=== PATIENT | female | born 1950 | race African-American/Black ===

== ENCOUNTER 2023-03-10 23:48 | Inpatient (IN) | payer OTHER ==
[~2023-03-10] VITALS: Ht 175.3 cm; Wt 146.5 kg
[~2023-03-10 23:48] MED LIST: APIX5TAB PO; CALC-1139 PO; DIXL5 PO; FURO40TA5 PO; LISI40TA13 PO; LUBI24CA5 PO; METO25TA6 PO; MIRA25TA PO; NORT10CA PO; ONDA4TAB11 PO; PANT40TA51 PO; POTA-205 PO; PREG300C PO; PREMV VG; SYN150 PO; TOPI-255 PO; VENL75CA56 PO
[2023-03-10 23:49] VITALS: O2SAT 99
[2023-03-11] MEDS ORDERED: ASPIRIN 81MG TABLET PO ONE (00:15)
[2023-03-11] MEDS ORDERED: FUROSEMIDE 40MG/4ML VIAL IV ONE (00:15)
[2023-03-11 02:39] LABS: BASOPHILS % 0.8 % (0.0-2.0); EOSINOPHILS % 0.7 % (0.0-5.0); HEMATOCRIT. 27.7 % (36.0-48.0); HEMOGLOBIN. 8.6 g/dL (12.0-16.0); LYMPHOCYTES % 10.7 % (20.0-50.0); MEAN CORPUSCULAR HEMOGLOBIN 29.4 pg (28.0-32.0); MEAN CORPUSCULAR VOLUME 94.6 fL (81.0-99.0); MEAN PLATELET VOLUME 8.6 fl (7.4-10.4); MONOCYTES % 4.1 % (2.0-8.0); NEUTROPHILS % 83.7 % (40.0-76.0); PLATELET 311 x1000/uL (130-400); RED BLOOD CELL COUNT 2.93 mill/uL (4.2-5.4); RED CELL DISTRIBUTION WIDTH 16.4 % (11.6-14.6)
[2023-03-11 02:45] LABS: CHLORIDE 101 mEq/L (98-107)
[2023-03-11 02:54] LABS: INR 1.1; PARTIAL THROMBOPLASTIN TIME 32.4 sec (23.4-31.0); PROTHROMBIN TIME 11.4 sec (9.6-11.0)
[2023-03-11 04:31] LABS: CHLORIDE 102 mEq/L (98-107)
[2023-03-11] MEDS: METOPROLOL TARTRATE 25MG TABLET PO SCH ×2 (11:56→21:56)
[2023-03-11] MEDS ORDERED: ACETAMINOPHEN 325MG TABLET PO PRN (16:30)
[2023-03-11] MEDS ORDERED: IPRATROPIUM/ALBUTEROL 0.5-3(2.5)MG/3ML NEB HHN PRN (16:30)
[2023-03-11] MEDS ORDERED: NALOXONE HCL 0.4MG/ML VIAL IV PRN (16:45)
[2023-03-11 19:56] LABS: BG BASE EXCESS 16.8 mmol/L (-2.0-2.0); BG CARBOXYHEMOGLOBIN 0.2 % (0.5-1.5); BG DEOXYHEMOGLOBIN 3.2 % (0.0-5.0); BG FRACTION INSPIRED OXYGEN 36; BG HCO3 ACT 44.3 mmol/L (22.0-26.0); BG METHEMOGLOBIN 0.1 % (0.0-1.5); BG OXYGEN SATURATION 96.8 % (92.0-98.5); BG OXYHEMOGLOBIN 96.5 % (94.0-97.0); BG PCO2 74.8 mmHg (35.0-45.0); BG PO2 96.5 mmHg (75.0-100.0); BG SAMPLE SITE RIGHT RADIAL; BG TOTAL HEMOGLOBIN 9.2 g/dL (12.0-18.0); BG VENT MODE NASAL CANNULA
[2023-03-11 20:00] VITALS: BP 141/77; PULSE 50; RESP 22; TEMP 97.8
[2023-03-11] MEDS: HYDROCODONE/ACETAMINOPHEN 5/325MG TABLET PO PRN (21:56)
[2023-03-11] MEDS: PIPERACILLIN/TAZOBACTAM 3.375 G in DEXTROSE 5% WATER 50 ML IV SCH (22:25)
[2023-03-12] VITALS: BP 139/63; PULSE 51; RESP 20; TEMP 97.7
[2023-03-12 04:00] VITALS: BP 141/73; PULSE 49; RESP 20; TEMP 97.8
[2023-03-12] MEDS: PIPERACILLIN/TAZOBACTAM 3.375 G in DEXTROSE 5% WATER 50 ML IV SCH ×2 (05:04→12:59)
[2023-03-12] MEDS: HYDROCODONE/ACETAMINOPHEN 5/325MG TABLET PO PRN ×3 (05:43→23:05)
[2023-03-12 06:03] LABS: BASOPHILS % 0.5 % (0.0-2.0); EOSINOPHILS % 1.3 % (0.0-5.0); HEMATOCRIT. 28.3 % (36.0-48.0); HEMOGLOBIN. 8.7 g/dL (12.0-16.0); LYMPHOCYTES % 14.4 % (20.0-50.0); MEAN CORPUSCULAR HEMOGLOBIN 28.9 pg (28.0-32.0); MEAN CORPUSCULAR VOLUME 94.3 fL (81.0-99.0); MEAN PLATELET VOLUME 8.5 fl (7.4-10.4); MONOCYTES % 8.3 % (2.0-8.0); NEUTROPHILS % 75.5 % (40.0-76.0); PLATELET 316 x1000/uL (130-400); RED CELL DISTRIBUTION WIDTH 16.6 % (11.6-14.6)
[2023-03-12 06:13] LABS: CHLORIDE 99 mEq/L (98-107)
[2023-03-12 08:00] VITALS: BP 144/57; PULSE 52; RESP 18; TEMP 98
[2023-03-12] MEDS ORDERED: MORPHINE SULFATE 2 MG/ML CPJ (NOT FOR IM USE) IV NR (08:30)
[2023-03-12] MEDS: METOPROLOL TARTRATE 25MG TABLET PO SCH (08:53)
[2023-03-12] MEDS: PANTOPRAZOLE SODIUM 40 MG/VIAL IV SCH (08:53)
[2023-03-12 12:00] VITALS: BP 136/54; PULSE 48; RESP 18; TEMP 97.9
[2023-03-12] MEDS ORDERED: AMLODIPINE 5MG TABLET PO SCH (12:30)
[2023-03-12 16:00] VITALS: BP 117/51; PULSE 62; RESP 18; TEMP 98.4
[2023-03-12] MEDS: LEVOFLOXACIN 500MG PREMIX 100 ML IV SCH (16:11)
[2023-03-12] MEDS: ONDANSETRON HCL 4MG/2ML INJ IV PRN (16:11)
[2023-03-12] MEDS: DOCUSATE SODIUM 100MG CAPSULE PO PRN (16:30)
[2023-03-12 16:49] LABS: T4 FREE 0.84 ng/dL (0.76-1.46)
[2023-03-12 17:01] LABS: FERRITIN 320 ng/mL (10-291)
[2023-03-12 17:12] LABS: VITAMIN B12 SERUM 645 pg/mL (211-911)
[2023-03-12 20:00] VITALS: BP 109/54; PULSE 47; RESP 22; TEMP 97.3
[2023-03-12] MEDS: AMLODIPINE 5MG TABLET PO SCH (20:27)
[2023-03-12 22:31] LABS: CLARITY URINE TURBID (CLEAR); COLOR URINE DARK YELLOW (YELLOW); KETONES URINE TRACE (NEGATIVE); LEUKOCYTE ESTERASE URINE TRACE (NEGATIVE); NITRITE URINE NEGATIVE (NEGATIVE); OCCULT BLOOD URINE 3+ (NEGATIVE); PROTEIN URINE 1+ (NEGATIVE); SPECIFIC GRAVITY URINE 1.032 (1.005-1.030)
[2023-03-13] VITALS (10 sets, daily range): BP systolic 109–141; BP diastolic 54–70; PULSE 47–55; RESP 15–22; TEMP 97–98.5
[2023-03-13 05:01] LABS: BASOPHILS % 0.6 % (0.0-2.0); HEMATOCRIT. 26.5 % (36.0-48.0); HEMOGLOBIN. 8.2 g/dL (12.0-16.0); LYMPHOCYTES % 15.2 % (20.0-50.0); MEAN CORPUSCULAR HEMOGLOBIN 29.5 pg (28.0-32.0); MEAN CORPUSCULAR VOLUME 95.2 fL (81.0-99.0); MEAN PLATELET VOLUME 8.2 fl (7.4-10.4); MONOCYTES % 5.8 % (2.0-8.0); NEUTROPHILS % 76.4 % (40.0-76.0); PLATELET 309 x1000/uL (130-400); RED BLOOD CELL COUNT 2.79 mill/uL (4.2-5.4); RED CELL DISTRIBUTION WIDTH 16.5 % (11.6-14.6)
[2023-03-13 05:13] LABS: CHLORIDE 101 mEq/L (98-107)
[2023-03-13] MEDS: AMLODIPINE 5MG TABLET PO SCH ×2 (09:30→22:40)
[2023-03-13] MEDS: HYDROCODONE/ACETAMINOPHEN 5/325MG TABLET PO PRN ×2 (09:30→22:41)
[2023-03-13] MEDS: PANTOPRAZOLE SODIUM 40 MG/VIAL IV SCH (09:31)
[2023-03-13] MEDS: ONDANSETRON HCL 4MG/2ML INJ IV PRN (09:31)
[2023-03-13] MEDS: DOCUSATE SODIUM 100MG CAPSULE PO PRN (09:32)
[2023-03-13] MEDS ORDERED: LEVOTHYROXINE SODIUM 150MCG TABLET PO SCH (10:15)
[2023-03-13 10:40] LABS: BG BASE EXCESS 9.1 mmol/L (-2.0-2.0); BG CARBOXYHEMOGLOBIN 0.7 % (0.5-1.5); BG DEOXYHEMOGLOBIN 3.5 % (0.0-5.0); BG FRACTION INSPIRED OXYGEN 32; BG HCO3 ACT 37.7 mmol/L (22.0-26.0); BG METHEMOGLOBIN 0.4 % (0.0-1.5); BG OXYGEN SATURATION 96.5 % (92.0-98.5); BG OXYHEMOGLOBIN 95.4 % (94.0-97.0); BG PCO2 80.7 mmHg (35.0-45.0); BG PH 7.287 (7.350-7.450); BG PO2 97.9 mmHg (75.0-100.0); BG SAMPLE SITE LEFT RADIAL; BG TOTAL HEMOGLOBIN 9.4 g/dL (12.0-18.0); BG VENT MODE NASAL CANNULA
[2023-03-13] MEDS ORDERED: FUROSEMIDE 40MG/4ML VIAL IVP NR (14:00)
[2023-03-13] MEDS: LEVOFLOXACIN 500MG PREMIX 100 ML IV SCH (17:07)
[2023-03-13] MEDS ORDERED: EPOETIN ALFA-EPBX 4,000 UNIT/ML VIAL SUBCUT SCH (21:00)
[2023-03-13 22:39] LABS: BG BASE EXCESS 11.6 mmol/L (-2.0-2.0); BG CARBOXYHEMOGLOBIN 0.9 % (0.5-1.5); BG DEOXYHEMOGLOBIN 4.1 % (0.0-5.0); BG FRACTION INSPIRED OXYGEN 32; BG HCO3 ACT 39.3 mmol/L (22.0-26.0); BG METHEMOGLOBIN 0.4 % (0.0-1.5); BG OXYGEN SATURATION 95.8 % (92.0-98.5); BG OXYHEMOGLOBIN 94.6 % (94.0-97.0); BG PCO2 73.7 mmHg (35.0-45.0); BG PH 7.345 (7.350-7.450); BG SAMPLE SITE LEFT RADIAL; BG TOTAL HEMOGLOBIN 9.2 g/dL (12.0-18.0); BG VENT MODE NASAL CANNULA
[2023-03-14] VITALS (11 sets, daily range): BP systolic 105–142; BP diastolic 60–81; PULSE 51–58; RESP 14–22; TEMP 97.2–98.6
[2023-03-14] MEDS: HYDROCODONE/ACETAMINOPHEN 5/325MG TABLET PO PRN ×2 (04:56→22:24)
[2023-03-14 06:47] LABS: BASOPHILS % 0.4 % (0.0-2.0); EOSINOPHILS % 1.5 % (0.0-5.0); HEMATOCRIT. 27.5 % (36.0-48.0); HEMOGLOBIN. 8.4 g/dL (12.0-16.0); MEAN CORPUSCULAR HEMOGLOBIN 29.2 pg (28.0-32.0); MEAN CORPUSCULAR VOLUME 95.8 fL (81.0-99.0); MEAN PLATELET VOLUME 8.4 fl (7.4-10.4); MONOCYTES % 6.2 % (2.0-8.0); NEUTROPHILS % 74.9 % (40.0-76.0); PLATELET 329 x1000/uL (130-400); RED BLOOD CELL COUNT 2.87 mill/uL (4.2-5.4)
[2023-03-14 06:58] LABS: CHLORIDE 100 mEq/L (98-107)
[2023-03-14] MEDS: LEVOTHYROXINE SODIUM 150MCG TABLET PO SCH (07:30)
[2023-03-14] MEDS ORDERED: NITROGLYCERIN 50MCG/ML 10ML VIAL (CATH LAB) IV ONE (08:00)
[2023-03-14] MEDS ORDERED: NICARDIPINE 100MCG/ML 10ML VIAL (CATH LAB) IV ONE (08:00)
[2023-03-14] MEDS: AMLODIPINE 5MG TABLET PO SCH ×2 (08:05→22:24)
[2023-03-14] MEDS: PANTOPRAZOLE SODIUM 40 MG/VIAL IV SCH (08:18)
[2023-03-14 10:10] LABS: BG BASE EXCESS 12.8 mmol/L (-2.0-2.0); BG CARBOXYHEMOGLOBIN 0.7 % (0.5-1.5); BG DEOXYHEMOGLOBIN 2.8 % (0.0-5.0); BG FRACTION INSPIRED OXYGEN 36; BG HCO3 ACT 41.5 mmol/L (22.0-26.0); BG METHEMOGLOBIN 0.2 % (0.0-1.5); BG OXYGEN SATURATION 97.2 % (92.0-98.5); BG OXYHEMOGLOBIN 96.3 % (94.0-97.0); BG PCO2 83.1 mmHg (35.0-45.0); BG PH 7.316 (7.350-7.450); BG PO2 102.8 mmHg (75.0-100.0); BG SAMPLE SITE RIGHT RADIAL; BG TOTAL HEMOGLOBIN 9.7 g/dL (12.0-18.0); BG VENT MODE NASAL CANNULA
[2023-03-14] MEDS ORDERED: FENTANYL CITRATE/PF 50MCG/ML 2ML VIAL ONE (10:48)
[2023-03-14] MEDS ORDERED: LIDOCAINE HCL 2% 5ML SYRINGE IV ONE (10:48)
[2023-03-14] MEDS ORDERED: IODIXANOL 320MG/ML 100 ML BOTTLE IV ONE (10:49)
[2023-03-14] MEDS ORDERED: HEPARIN 1000 UNITS/ML 10ML ONE (10:49)
[2023-03-14] MEDS ORDERED: MIDAZOLAM HCL 2 MG/2 ML VIAL ONE (10:50)
[2023-03-14] MEDS ORDERED: LIDOCAINE HCL/PF 2% 20MG/ML 5 ML/VIAL ONE (11:19)
[2023-03-14] MEDS ORDERED: ATROPINE SULFATE 1MG/10ML SYR IV PRN (12:00)
[2023-03-14] MEDS ORDERED: ACETAMINOPHEN 325MG TABLET PO PRN (12:00)
[2023-03-14] MEDS: LEVOFLOXACIN 500MG PREMIX 100 ML IV SCH (17:54)
[2023-03-14] MEDS: EPOETIN ALFA-EPBX 4,000 UNIT/ML VIAL SUBCUT SCH (22:23)
[2023-03-15] VITALS (19 sets, daily range): BP systolic 115–181; BP diastolic 60–112; PULSE 52–64; RESP 14–22; TEMP 97.8–98.2
[2023-03-15 06:22] LABS: BASOPHILS % 0.4 % (0.0-2.0); EOSINOPHILS % 1.7 % (0.0-5.0); HEMATOCRIT. 27.2 % (36.0-48.0); HEMOGLOBIN. 8.5 g/dL (12.0-16.0); LYMPHOCYTES % 16.8 % (20.0-50.0); MEAN CORPUSCULAR HEMOGLOBIN 29.7 pg (28.0-32.0); MEAN CORPUSCULAR VOLUME 95.1 fL (81.0-99.0); MEAN PLATELET VOLUME 8.4 fl (7.4-10.4); MONOCYTES % 7.1 % (2.0-8.0); PLATELET 324 x1000/uL (130-400); RED BLOOD CELL COUNT 2.86 mill/uL (4.2-5.4); RED CELL DISTRIBUTION WIDTH 16.7 % (11.6-14.6)
[2023-03-15 06:28] LABS: CHLORIDE 101 mEq/L (98-107)
[2023-03-15] MEDS: FAMOTIDINE 20MG/2ML VIAL IV SCH ×2 (09:55→21:15)
[2023-03-15] MEDS: LEVOTHYROXINE SODIUM 150MCG TABLET PO SCH (09:55)
[2023-03-15] MEDS: AMLODIPINE 5MG TABLET PO SCH ×2 (09:57→21:11)
[2023-03-15] MEDS ORDERED: FUROSEMIDE 40MG/4ML VIAL IVP NR (12:05)
[2023-03-15 13:51] LABS: BG BASE EXCESS 12.9 mmol/L (-2.0-2.0); BG DEOXYHEMOGLOBIN 5.2 % (0.0-5.0); BG FRACTION INSPIRED OXYGEN 28; BG HCO3 ACT 40.4 mmol/L (22.0-26.0); BG METHEMOGLOBIN 0.1 % (0.0-1.5); BG OXYGEN SATURATION 94.7 % (92.0-98.5); BG OXYHEMOGLOBIN 93.7 % (94.0-97.0); BG PCO2 69.8 mmHg (35.0-45.0); BG PO2 76.2 mmHg (75.0-100.0); BG SAMPLE SITE LEFT RADIAL; BG TOTAL HEMOGLOBIN 10.3 g/dL (12.0-18.0); BG VENT MODE NASAL CANNULA
[2023-03-15] MEDS: HYDROCODONE/ACETAMINOPHEN 5/325MG TABLET PO PRN (17:00)
[2023-03-15] MEDS: LEVOFLOXACIN 500MG PREMIX 100 ML IV SCH (17:24)
[2023-03-15] MEDS: DOCUSATE SODIUM 100MG CAPSULE PO PRN (21:09)
[2023-03-15] MEDS: ACETAMINOPHEN 325MG TABLET PO PRN (21:15)
[2023-03-16] VITALS (24 sets, daily range): BP systolic 105–161; BP diastolic 56–112; PULSE 51–58; RESP 9–20; TEMP 97.2–98.1
[2023-03-16] MEDS: ONDANSETRON HCL 4MG/2ML INJ IV PRN ×2 (00:26→21:55)
[2023-03-16] MEDS: AMLODIPINE 5MG TABLET PO SCH ×2 (09:00→21:12)
[2023-03-16] MEDS: LEVOTHYROXINE SODIUM 150MCG TABLET PO SCH (09:00)
[2023-03-16] MEDS: FAMOTIDINE 20MG/2ML VIAL IV SCH ×2 (09:00→21:11)
[2023-03-16] MEDS ORDERED: FUROSEMIDE 100MG/10ML VIAL IVP NR (12:30)
[2023-03-16] MEDS ORDERED: METOLAZONE 2.5MG TABLET PO NR (12:45)
[2023-03-16] MEDS: ACETAMINOPHEN 325MG TABLET PO PRN (17:00)
[2023-03-16] MEDS ORDERED: MAGNESIUM/ALUMINUM HYDROXIDE/SIMETHICONE 30ML UDC PO PRN (17:00)
[2023-03-16] MEDS: LEVOFLOXACIN 500MG PREMIX 100 ML IV SCH (17:59)
[2023-03-16] MEDS: CLONIDINE 0.2MG TABLET PO SCH (18:00)
[2023-03-16] MEDS: FUROSEMIDE 100MG/10ML VIAL IVP SCH (18:00)
[2023-03-16] MEDS: EPOETIN ALFA-EPBX 4,000 UNIT/ML VIAL SUBCUT SCH (21:11)
[2023-03-17] VITALS (15 sets, daily range): BP systolic 94–137; BP diastolic 50–89; PULSE 49–66; RESP 11–18; TEMP 98–98.8
[2023-03-17] MEDS: FUROSEMIDE 100MG/10ML VIAL IVP SCH ×2 (07:39→10:28)
[2023-03-17] MEDS: CLONIDINE 0.2MG TABLET PO SCH ×2 (09:00→16:02)
[2023-03-17] MEDS: LEVOTHYROXINE SODIUM 150MCG TABLET PO SCH (10:29)
[2023-03-17] MEDS: FAMOTIDINE 20MG/2ML VIAL IV SCH ×2 (10:29→20:44)
[2023-03-17] MEDS: AMLODIPINE 5MG TABLET PO SCH ×2 (10:30→20:44)
[2023-03-17] MEDS: ACETAMINOPHEN 325MG TABLET PO PRN ×2 (18:34→23:04)
[2023-03-17] MEDS ORDERED: IPRATROPIUM/ALBUTEROL 0.5-3(2.5)MG/3ML NEB ONE (20:22)
[2023-03-18] VITALS: BP 109/81; PULSE 56; RESP 16; TEMP 98.8
[2023-03-18 02:00] VITALS: BP 126/68; PULSE 54; RESP 16
[2023-03-18 04:00] VITALS: BP 106/68; PULSE 56; RESP 16
[2023-03-18 06:00] VITALS: BP 134/87; PULSE 57; RESP 16
[2023-03-18] MEDS: LEVOTHYROXINE SODIUM 150MCG TABLET PO SCH (06:40)
[2023-03-18] MEDS: FUROSEMIDE 100MG/10ML VIAL IVP SCH (06:40)
[2023-03-18 08:00] VITALS: BP 111/67; PULSE 58; RESP 15; TEMP 97.2
== END 2023-03-18 09:30 | DRG 286 ==
LOC: ER 23:54 → 7WST 03-11 05:14 → 5EST 03-13 11:30
PROVIDERS: ADMIT Internal Medicine; ATTEND Internal Medicine
PROC: 5A09357 Assistance with Respiratory Ventilation, Less than 24 Consecutive Hours, Continuous Positive Airway Pressure (ICD-10-PCS; principal; 2023-03-13)
PROC: 4A023N7 Measurement of Cardiac Sampling and Pressure, Left Heart, Percutaneous Approach (ICD-10-PCS; 2023-03-14)
PROC: B211YZZ Fluoroscopy of Multiple Coronary Arteries using Other Contrast (ICD-10-PCS; 2023-03-14)
PROC: B215YZZ Fluoroscopy of Left Heart using Other Contrast (ICD-10-PCS; 2023-03-14)
PROC: 5A09357 Assistance with Respiratory Ventilation, Less than 24 Consecutive Hours, Continuous Positive Airway Pressure (ICD-10-PCS; 2023-03-14)
PROC: 5A09357 Assistance with Respiratory Ventilation, Less than 24 Consecutive Hours, Continuous Positive Airway Pressure (ICD-10-PCS; 2023-03-15)
PROC: 5A09357 Assistance with Respiratory Ventilation, Less than 24 Consecutive Hours, Continuous Positive Airway Pressure (ICD-10-PCS; 2023-03-17)
DX: I11.0 Hypertensive heart disease with heart failure (principal); I50.33 Acute on chronic diastolic (congestive) heart failure; J96.22 Acute and chronic respiratory failure with hypercapnia; D68.59 Other primary thrombophilia; Z68.42 Body mass index [BMI] 45.0-49.9, adult; E87.5 Hyperkalemia; D64.9 Anemia, unspecified; G47.33 Obstructive sleep apnea (adult) (pediatric); E03.9 Hypothyroidism, unspecified; I48.0 Paroxysmal atrial fibrillation; I34.0 Nonrheumatic mitral (valve) insufficiency; I37.1 Nonrheumatic pulmonary valve insufficiency; F32.A Depression, unspecified; I42.9 Cardiomyopathy, unspecified; M79.7 Fibromyalgia; E66.01 Morbid (severe) obesity due to excess calories; Z20.822 Contact with and (suspected) exposure to COVID-19; K21.9 Gastro-esophageal reflux disease without esophagitis; G62.9 Polyneuropathy, unspecified; D50.9 Iron deficiency anemia, unspecified; G89.29 Other chronic pain; E78.00 Pure hypercholesterolemia, unspecified; Z79.01 Long term (current) use of anticoagulants; Z79.899 Other long term (current) drug therapy; Z85.850 Personal history of malignant neoplasm of thyroid; Z98.84 Bariatric surgery status
CPT/HCPCS: 36415; 36600; 71045; 71250; 73521; 73700; 78580; 80048; 80053; 81003; 82270; 82375; 82607; 82728; 82746; 82805; 83540; 83550; 83605; 83735; 83880; 84145; 84439; 84443; 84484; 85025; 85379; 87426; 93005; 93306; 93970; 94640; 94660; 99285; A9500; C1893; C9113; J0885; J1644; J1940; J1956; J2250; J2270; J2405; J2543; J3010; J3490; J7060; Q9967

== ENCOUNTER 2023-09-10 14:13 | Emergency (ER) | payer OTHER, MEDICAID ==
[~2023-09-10] VITALS: Ht 167.6 cm; Wt 143.3 kg
[2023-09-10 14:21] VITALS: O2SAT 94
[2023-09-10] MEDS ORDERED: TENECTEPLASE 50MG/VIAL IV ONE (15:15)
[2023-09-10] MEDS ORDERED: *TENECTEPLASE FOR AIS XX SCH (15:30)
[2023-09-10] MEDS ORDERED: PIPERACILLIN/TAZ 3.375G PREMIX 50 ML IV ONE (15:30)
[2023-09-10] MEDS ORDERED: VANCOMYCIN 1G PREMIX 200 ML IV ONE (15:30)
[2023-09-10] MEDS ORDERED: SODIUM CHLORIDE 0.9% 1,000 ML IV ONE (15:45)
[2023-09-10 15:46] LABS: BG BASE EXCESS 9.3 mmol/L (-2.0-2.0); BG CARBOXYHEMOGLOBIN 0.1 % (0.5-1.5); BG DEOXYHEMOGLOBIN 3.1 % (0.0-5.0); BG HCO3 ACT 37.5 mmol/L (22.0-26.0); BG METHEMOGLOBIN 0.1 % (0.0-1.5); BG OXYGEN SATURATION 96.9 % (92.0-98.5); BG OXYHEMOGLOBIN 96.7 % (94.0-97.0); BG PCO2 69.8 mmHg (35.0-45.0); BG PH 7.348 (7.350-7.450); BG PO2 99.1 mmHg (75.0-100.0); BG SAMPLE SITE RIGHT BRACHIAL; BG TOTAL HEMOGLOBIN 12.8 g/dL (12.0-18.0); BG VENT MODE NASAL CANNULA
[2023-09-10 15:49] LABS: BASOPHILS % 0.8 % (0.0-2.0); DIFFERENTIAL COMMENT 0; EOSINOPHILS % 1.2 % (0.0-5.0); HEMATOCRIT. 38.9 % (36.0-48.0); HEMOGLOBIN. 11.8 g/dL (12.0-16.0); LYMPHOCYTES % 18.7 % (20.0-50.0); MEAN CORPUSCULAR HEMOGLOBIN 28.4 pg (28.0-32.0); MEAN CORPUSCULAR HGB CONC 30.5 g/dL (31.0-37.0); MEAN CORPUSCULAR VOLUME 93.3 fL (81.0-99.0); MEAN PLATELET VOLUME 8.6 fl (7.4-10.4); MONOCYTES % 7.7 % (2.0-8.0); NEUTROPHILS % 71.6 % (40.0-76.0); PLATELET 238 x1000/uL (130-400); RED BLOOD CELL COUNT 4.17 mill/uL (4.2-5.4); WHITE BLOOD COUNT 11.3 x1000/uL (4.5-11.0)
[2023-09-10 16:00] LABS: PROTHROMBIN TIME 10.6 sec (9.6-11.0)
[2023-09-10 16:03] LABS: ALANINE AMINOTRANSFERASE 18 IU/L (10-49); ALBUMIN 3.7 g/dL (3.2-4.8); ASPARTATE AMINOTRANSFERASE 24 IU/L (<34); BILIRUBIN TOTAL 0.3 mg/dL (0.1-1.0); CALCIUM 8.9 mg/dL (8.7-10.4); CARBON DIOXIDE 36 mEq/L (21-32); CHLORIDE 101 mEq/L (98-107); CREATINE KINASE 53 IU/L (34-145); CREATININE 0.9 mg/dL (0.6-1.0); ETHANOL BLOOD < 10 mg/dL (<10); GLUCOSE 93 mg/dL (70-105); POTASSIUM 5.3 mEq/L (3.5-5.1); PROTEIN TOTAL 7.4 g/dL (6.0-8.3); SODIUM 141 mEq/L (136-145); TROPONIN I HIGH SENSITIVITY 5 ng/L (3.0-34); UREA NITROGEN BLOOD 22 mg/dL (9-23)
[2023-09-10] MEDS ORDERED: SUCCINYLCHOLINE CHLORIDE 200MG/10ML IV ONE (16:15)
[2023-09-10] MEDS ORDERED: MIDAZOLAM 100MG/100ML PMX 100 ML IV PRN (16:15)
[2023-09-10] MEDS ORDERED: ETOMIDATE 2MG/ML 10ML VIAL IV ONE (16:15)
[2023-09-10] MEDS ORDERED: PROPOFOL 200MG/20ML VIAL IV ONE (16:15)
[2023-09-10 17:38] LABS: BG BASE EXCESS 8.6 mmol/L (-2.0-2.0); BG CARBOXYHEMOGLOBIN 0.6 % (0.5-1.5); BG DEOXYHEMOGLOBIN 8.8 % (0.0-5.0); BG HCO3 ACT 36.6 mmol/L (22.0-26.0); BG METHEMOGLOBIN 0.2 % (0.0-1.5); BG OXYGEN SATURATION 91.1 % (92.0-98.5); BG OXYHEMOGLOBIN 90.4 % (94.0-97.0); BG PCO2 67.5 mmHg (35.0-45.0); BG PH 7.352 (7.350-7.450); BG SAMPLE SITE RIGHT RADIAL; BG TOTAL HEMOGLOBIN 13.1 g/dL (12.0-18.0); BG VENT MODE NASAL CANNULA
[2023-09-10] MEDS ORDERED: HYDRALAZINE 20MG/ML VIAL IV ONE (18:15)
[2023-09-10 18:27] VITALS: PULSE 96; RESP 24
[2023-09-10] MEDS ORDERED: MIDAZOLAM HCL 100 MG in SODIUM CHLORIDE 0.9% 100 ML IV PRN (18:30)
[2023-09-10] MEDS ORDERED: PROPOFOL 200MG/20ML VIAL IV NR (18:30)
[2023-09-10 18:39] VITALS: RESP 20; TEMP 98
[2023-09-10 18:45] VITALS: BP 126/65; PULSE 78
== END 2023-09-10 18:58 | disposition short-term general hospital (02) ==
LOC: ER 15:21
DX: R47.01 Aphasia (principal); J96.92 Respiratory failure, unspecified with hypercapnia; I11.0 Hypertensive heart disease with heart failure; I50.9 Heart failure, unspecified; J44.9 Chronic obstructive pulmonary disease, unspecified; E78.00 Pure hypercholesterolemia, unspecified; E03.9 Hypothyroidism, unspecified
CPT/HCPCS: 80053; 80320; 82550; 83605; 85025; 85610; 86850; 86900; 86901; 87040; 84484; 36415; 71045; 70496; 70498; 70450; 82805; 82375; 31500 ×2; 93005; 96367; 96365; 96366; 96375; 99291; 36600; J2997; J0360; J2543; J2704; J3370; J7030; 94003; G0480